=== PATIENT | female | born 1995 | race African-American/Black ===

== ENCOUNTER → 2016-09-16 | Outpatient (REF) | payer OTHER ==
[2016-09-16 21:06] LABS: BASO % 0.3 % (0.0-1.0); EOS # 0.1 K/mm3 (0.0-0.50); EOS % 1.7 % (0.0-3.0); LARGE UNSTAINED CELL # 0.1 K/mm3 (0.0-0.4); LARGE UNSTAINED CELL % 1.9 % (0.0-4.0); LYMPH # 2.1 K/mm3 (1.5-6.5); LYMPH % 31.3 % (24.0-44.0); MEAN CORPUSCULAR HEMOGLOBIN 28.8 pg (27.0-33.0); MEAN CORPUSCULAR HGB CONC 30.8 g/dl (32.0-36.5); MEAN CORPUSCULAR VOLUME 93.7 fl (80.0-96.0); MONO # 0.4 K/mm3 (0.0-0.8); MONO % 6.1 % (0.0-5.0); NEUTROPHILS # 3.9 K/mm3 (1.8-7.7); NEUTROPHILS % 58.6 % (36.0-66.0); PLATELET COUNT, AUTOMATED 336 k/mm3 (150-450); RED CELL DISTRIBUTION WIDTH 12.6 % (11.5-14.5); WHITE BLOOD COUNT 6.7 K/mm3 (4.0-10.0)
[2016-09-16 21:22] LABS: FOLATE 10.3 NG/ML (>5.4); VITAMIN B12 LEVEL 792 PG/ML (247-911)
[2016-09-16 21:24] LABS: ALBUMIN/GLOBULIN RATIO 1.08 (1.00-1.93); ALKALINE PHOSPHATASE 74 U/L (45-117); ALT/SGPT 22 U/L (12-78); ANION GAP 6 MEQ/L (8-16); AST/SGOT 12 U/L (15-37); BILIRUBIN,TOTAL 0.2 MG/DL (0.2-1.0); BLOOD UREA NITROGEN 11 MG/DL (7-18); CALCIUM LEVEL 8.8 MG/DL (8.5-10.1); CARBON DIOXIDE LEVEL 25 MEQ/L (21-32); CHLORIDE LEVEL 105 MEQ/L (98-107); CREATININE FOR GFR 0.75 MG/DL (0.55-1.02); GLOMERULAR FILTRATION RATE > 60.0 (>60); GLUCOSE, FASTING 102 MG/DL (70-105); POTASSIUM SERUM 4.3 MEQ/L (3.5-5.1); SODIUM LEVEL 136 MEQ/L (136-145); TOTAL PROTEIN 7.7 GM/DL (6.4-8.2)
[2016-09-16 21:46] LABS: ERYTHROCYTE SEDIMENTATION RATE 6 mm/hr (0-20)
[2016-09-20 13:04] LABS: ALBUMIN 4.28 GM/DL (3.29-5.55); ALBUMIN % 55.6 % (55.8-66.1); GAMMA GLOBULIN % 19.3 % (11.1-18.8)
== END ==
LOC: M LABNEURO 13:34
PROVIDERS: ATTEND Psychiatry & Neurology Neurology
DX: G62.9 Polyneuropathy, unspecified (principal)

== ENCOUNTER 2016-10-02 12:36 | Emergency (ER) | payer OTHER ==
[~2016-10-02] VITALS: Ht 152.4 cm; Wt 72.6 kg
[2016-10-02 12:38] VITALS: BP 136/74
[2016-10-02] MEDS ORDERED: AMBI5TAB PO (12:46)
[2016-10-02] MEDS ORDERED: PERC5TAB6 PO (13:41)
[2016-10-02] MEDS ORDERED: MOBI7.5T10 PO (13:43)
[2016-10-02] MEDS ORDERED: PERCOCET 5MG/325MG TAB PO ONE (13:45)
== END 2016-10-02 13:57 | disposition home or self-care (01) ==
LOC: M ED 13:32
DX: M25.572 Pain in left ankle and joints of left foot (principal); G89.29 Other chronic pain; Z79.899 Other long term (current) drug therapy

== ENCOUNTER 2016-10-15 01:07 | Emergency (ER) | payer OTHER ==
[~2016-10-15] VITALS: Ht 152.4 cm; Wt 72.6 kg
[~2016-10-15 01:07] MED LIST: AMBI5TAB PO; MOBI7.5T10 PO; PERC5TAB6 PO
[2016-10-15] MEDS ORDERED: NEOSPORIN OINT 0.9 GM PKT (FLOOR STOCK) As Ordered ONE (01:13)
[2016-10-15 01:14] VITALS: BP 134/84
[2016-10-15] MEDS ORDERED: MORPHINE 4 MG/ML 1ML SYRINGE IM ONE (02:45)
--- NOTE | 2016-10-15 03:40 | REPUSA ---
CLINICAL HISTORY: Edema. COMMENTS: Real time sonography with duplex doppler of the left lower extremity was performed with attention to the major deep venous structures. Evaluation reveals the left common femoral, superficial femoral and popliteal veins to be completely compressible without intraluminal thrombus. There is normal spontaneous phasic flow and augmentation. The greater saphenous/common femoral vein junction is patent. IMPRESSION: No evidence of DVT in left lower extremity.. Thank you for your kind referral of this patient.
== END 2016-10-15 03:30 | disposition home or self-care (01) ==
LOC: M ED 03:26
DX: M25.572 Pain in left ankle and joints of left foot (principal); G89.29 Other chronic pain; Z98.890 Other specified postprocedural states; Z87.81 Personal history of (healed) traumatic fracture; Z79.899 Other long term (current) drug therapy

== ENCOUNTER → 2016-11-09 | Day surgery (SDC) | payer OTHER ==
[~2016-11-09] VITALS: Ht 152.4 cm; Wt 69.4 kg
[~2016-11-09] MED LIST changes: +ACETAMINOPHEN 650 MG SUPP As Ordered ONE; +ACETAMINOPHEN 650 MG SUPP PR ONE; +BUPIVACAINE HCL 0.5% 30 ML VIAL As Ordered ONE; +GLYCOPYRROLATE INJ 0.2 MG/ML 2 ML VIAL As Ordered ONE; +HYDROmorphone HCL 1 MG/ML SYRINGE (J1170) As Ordered ONE; +KETOROLAC 60 MG/2 ML VIAL (J1885) As Ordered ONE; +LIDOCAINE 2% INJ 100 MG/5 ML SDV (FOR ANES.) As Ordered ONE; +LR 1,000 ML IV ONE; +LR 1,000 ML IV SCH; +METOCLOPRAMIDE INJ 10MG/2ML VIAL (J2765) As Ordered ONE; +METOCLOPRAMIDE INJ 10MG/2ML VIAL (J2765) IV PRN; +MIDAZOLAM INJ 2 MG/2 ML VIAL (J2250) As Ordered ONE; +NEOSTIGMINE 1MG/ML 5 ML SYRINGE (J2710) As Ordered ONE; +NS 1,000 ML IV SCH; +NS 800 ML IV ONE; +ONDANSETRON 4MG/2ML VIAL (J2405) As Ordered ONE; +ONDANSETRON 4MG/2ML VIAL (J2405) IV PRN; +PERCOCET 5MG/325MG TAB As Ordered ONE; +PERCOCET 5MG/325MG TAB PO PRN; +PROPOFOL 200 MG/20 ML VIAL As Ordered ONE; +dexameTHASONE 4 MG/ML 1ML VIAL (J1100) As Ordered ONE; +fentaNYL 100 MCG/2 ML INJECTION (J3010) As Ordered ONE
[2016-11-09 06:47] LABS: MEAN CORPUSCULAR HEMOGLOBIN 30.5 pg (27.0-33.0); MEAN CORPUSCULAR HGB CONC 32.9 g/dl (32.0-36.5); MEAN CORPUSCULAR VOLUME 92.5 fl (80.0-96.0); RED CELL DISTRIBUTION WIDTH 12.4 % (11.5-14.5); WHITE BLOOD COUNT 6.8 K/mm3 (4.0-10.0)
[2016-11-09 07:11] LABS: ANION GAP 7 MEQ/L (8-16); BLOOD UREA NITROGEN 10 MG/DL (7-18); CALCIUM LEVEL 9.1 MG/DL (8.5-10.1); CARBON DIOXIDE LEVEL 26 MEQ/L (21-32); CHLORIDE LEVEL 108 MEQ/L (98-107); CREATININE FOR GFR 0.77 MG/DL (0.55-1.02); GLOMERULAR FILTRATION RATE > 60.0 (>60); GLUCOSE, FASTING 98 MG/DL (70-105); POTASSIUM SERUM 4.1 MEQ/L (3.5-5.1); SODIUM LEVEL 141 MEQ/L (136-145)
[2016-11-09 08:06] LABS: HCG, SERUM QUANTITATIVE < 1.0 MIU/ML
[2016-11-09] MEDS: HYDROmorphone HCL 1 MG/ML SYRINGE (J1170) IV PRN ×5 (09:10→09:30)
[2016-11-09] MEDS: fentaNYL 100 MCG/2 ML INJECTION (J3010) IV PRN ×4 (09:35→09:50)
[2016-11-09 12:00] VITALS: BP 133/67
--- NOTE | 2016-11-14 12:50 | RO ---
DATE OF PROCEDURE: 11/09/2016 PREOPERATIVE DIAGNOSIS: Dysmenorrhea, abnormal uterine bleeding, supraumbilical keloid. POSTOPERATIVE DIAGNOSIS: OPERATION PROPOSED: Diagnostic laparoscopy, stage grade vaporize endometriosis, hysteroscopy, dilation and curettage (D and C) and removal of supraumbilical keloid. OPERATION PERFORMED: Diagnostic laparoscopy, hysteroscopy, dilation and curettage and removal of supraumbilical keloid. SURGEON: Dr. Rogelio Lamar PARK KEEPER: General plus local anesthetic for intraperitoneal procedures. ESTIMATED BLOOD LOSS: Less than 20 mL. SURGEON: Dr. Rogelio Lamar PARK KEEPER: Amy DESCRIPTION OF PROCEDURE: Under adequate anesthesia, prepped and draped in the lithotomy position, Fraga catheter in the bladder draining clear urine, acetaminophen suppository 1300 mg per rectum, sequentials on board, no antibiotics required. A weighted speculum was placed in the vagina. Single-tooth tenaculum on the anterior lip of the cervix. There was some degree of cervical uterine prolapse. The uterine elevator was placed in endocervical canal. Reprepping and draping, small subumbilical incision was made. The 3 mm camera was placed with a clear view, direct entry into the abdomen. No evidence of perforation, hemorrhage or bleeding. The gas was attached and 3.1 liters of CO2 at a flow rate of 14 per minute was used to inflate the abdomen. Once inside, we noticed no evidence of perforation, hemorrhage or bleeding. Interestingly, the right upper quadrant was normal. Both ovaries appeared to be normal. The anterior aspect of the bladder was normal. There was a white plaque- like area over the cornua on the right side, extending about one-third down the front of the uterus and one-third back of the uterus. Etiology of significance is unknown, but it seemed to be quite an extensive area, possibly related to chronic retroversion and irritation of that area in the cul-de-sac. She did have evidence of adhesions to the left lateral sidewall, and she did have an anterior wall fibroid noted. The areas around the round ligaments appeared to have some degree of endometriosis and the cul-de-sac had spottings of endometriosis, not significant enough in volume but significant enough to cause her pain and etiology of this white plaque-like area is unknown. The left upper quadrant was normal. The rest of the examination was unremarkable. We then went ahead and under direct view, weighted speculum in vagina, again single-tooth tenaculum in place. We sounded the canal in order to get into the uterine cavity. It was quite difficult in that there was some significant stenosis of her cervix, but once we were able to break that barrier, the rest of the cavity opened up and when we looked fundally and on the left side, again there was this white area [id number] from the internal aspect of the cavity to the fundus on the outside. Sampling of the uterine cavity was taken and sent to pathology under separate cover. This lady's last period was November 03, 2016. The os the right side was noted normal. The os on the left side was noted normal. There was no other intrauterine architectural issues. We had 150 mL in, 150 mL out. Then, with instrument and pad count correct, we removed all instruments from the patient, removed the Fraga catheter. We then went up above and removed the keloid, over sewed that with #3-0 Monofil and subcuticular stitch, Marcaine 0.25% to that area, the umbilical area and the right sidewall area where we had placed a trocar. With no active bleeding, skin tapes were provided. The patient was then taken back to recovery in good condition. Options regarding this patient's chronic pain will be discussed prior to her moving to her next appointment . Copy To: Mary Lou Yost [facility]
== END ==
LOC: M SDC 06:18
PROVIDERS: ATTEND Obstetrics & Gynecology
DX: N94.6 Dysmenorrhea, unspecified (principal); N93.9 Abnormal uterine and vaginal bleeding, unspecified; L91.0 Hypertrophic scar; F32.9 Major depressive disorder, single episode, unspecified; Z79.899 Other long term (current) drug therapy
CPT/HCPCS: 11400; 36415; 49320; 58558; 80048; 84702; 85027; 88302; 88305; J1100; J1170; J1885; J2250; J2405; J2710; J2765; J3010

== ENCOUNTER 2017-02-14 10:29 | Emergency (ER) | payer OTHER ==
[~2017-02-14] VITALS: Ht 152.4 cm; Wt 72.7 kg
[~2017-02-14 10:29] MED LIST changes: -ACETAMINOPHEN 650 MG SUPP As Ordered ONE; -ACETAMINOPHEN 650 MG SUPP PR ONE; -BUPIVACAINE HCL 0.5% 30 ML VIAL As Ordered ONE; -GLYCOPYRROLATE INJ 0.2 MG/ML 2 ML VIAL As Ordered ONE; -HYDROmorphone HCL 1 MG/ML SYRINGE (J1170) As Ordered ONE; -KETOROLAC 60 MG/2 ML VIAL (J1885) As Ordered ONE; -LIDOCAINE 2% INJ 100 MG/5 ML SDV (FOR ANES.) As Ordered ONE; -LR 1,000 ML IV ONE; -LR 1,000 ML IV SCH; -METOCLOPRAMIDE INJ 10MG/2ML VIAL (J2765) As Ordered ONE; -METOCLOPRAMIDE INJ 10MG/2ML VIAL (J2765) IV PRN; -MIDAZOLAM INJ 2 MG/2 ML VIAL (J2250) As Ordered ONE; +MOBI4TAB PO; -MOBI7.5T10 PO; -NEOSTIGMINE 1MG/ML 5 ML SYRINGE (J2710) As Ordered ONE; -NS 1,000 ML IV SCH; -NS 800 ML IV ONE; -ONDANSETRON 4MG/2ML VIAL (J2405) As Ordered ONE; -ONDANSETRON 4MG/2ML VIAL (J2405) IV PRN; +PERC5TAB12 PO; -PERC5TAB6 PO; -PERCOCET 5MG/325MG TAB As Ordered ONE; -PERCOCET 5MG/325MG TAB PO PRN; -PROPOFOL 200 MG/20 ML VIAL As Ordered ONE; -dexameTHASONE 4 MG/ML 1ML VIAL (J1100) As Ordered ONE; -fentaNYL 100 MCG/2 ML INJECTION (J3010) As Ordered ONE
[2017-02-14] MEDS ORDERED: CITR1SOL PO (11:25)
--- NOTE | 2017-02-14 11:29 | REP ---
KUB: Single view. History: Constipation. Findings: The bowel gas pattern is normal. Psoas margins and flank stripes are intact. No mass, organomegaly, or pathologic calcification is seen. Impression: Negative KUB. Signed by Ivan Kirkpatrick MD 02/14/2017 12:16 P
[2017-02-14 11:40] VITALS: BP 120/72
== END 2017-02-14 11:42 | disposition home or self-care (01) ==
LOC: M ED 10:29
DX: K59.00 Constipation, unspecified (principal); F99 Mental disorder, not otherwise specified; Z79.899 Other long term (current) drug therapy

== ENCOUNTER 2017-03-20 18:38 | Emergency (ER) | payer OTHER ==
[~2017-03-20] VITALS: Ht 152.4 cm; Wt 75.5 kg
[~2017-03-20 18:38] MED LIST changes: +CITR1SOL PO
[2017-03-20] MEDS ORDERED: PREN1PAK PO (19:09)
[2017-03-20] MEDS ORDERED: MELA1LIQ2 PO (19:09)
[2017-03-20 20:55] LABS: BASO % 0.2 % (0.0-1.0); EOS # 0.1 10^3/uL (0.0-0.50); EOS % 1.1 % (0.0-3.0); IMMATURE GRANULOCYTE % 0.3 % (0-0); LYMPH # 3.6 10^3/uL (1.5-6.5); LYMPH % 36.4 % (24.0-44.0); MEAN CORPUSCULAR HEMOGLOBIN 29.3 pg (27.0-33.0); MEAN CORPUSCULAR HGB CONC 33.1 g/dl (32.0-36.5); MEAN CORPUSCULAR VOLUME 88.5 fl (80.0-96.0); MONO # 0.8 10^3/uL (0.0-0.8); NEUTROPHILS # 5.3 10^3/uL (1.8-7.7); PLATELET COUNT, AUTOMATED 359 10^3/uL (150-450); RED CELL DISTRIBUTION WIDTH 12.6 % (11.5-14.5); WHITE BLOOD COUNT 9.8 10^3/uL (4.0-10.0)
[2017-03-20] MEDS ORDERED: ACETAMINOPHEN 325 MG TAB PO ONE (21:30)
[2017-03-20 21:41] LABS: ANION GAP 8 MEQ/L (8-16); BLOOD UREA NITROGEN 14 MG/DL (7-18); CALCIUM LEVEL 9.2 MG/DL (8.5-10.1); CARBON DIOXIDE LEVEL 25 MEQ/L (21-32); CHLORIDE LEVEL 104 MEQ/L (98-107); CREATININE FOR GFR 0.75 MG/DL (0.55-1.02); GLOMERULAR FILTRATION RATE > 60.0 (>60); GLUCOSE, FASTING 87 MG/DL (70-105); HCG, SERUM QUANTITATIVE 7819 MIU/ML; POTASSIUM SERUM 4.1 MEQ/L (3.5-5.1); SODIUM LEVEL 137 MEQ/L (136-145)
--- NOTE | 2017-03-20 22:20 | REPUSA ---
HISTORY: Pelvic pain. LMP: 02/07/17. Gestational age by the: 5 weeks 6 days. EDC by LMP: 11/14/17. TECHNIQUE: Transabdominal and transvaginal obstetrical ultrasound examination with color flow Doppler imaging. FINDINGS: Uterus measures 9.4 x 5.6 x 6.7 cm. There is a single intrauterine gestational sac measur ing 11.1 x 10.3 x 8.5 mm corresponding to a gestational age of 5 weeks 6 days, with EDC of 11/14/17. Yolk sac is identified but no pole is identifiable at this time. There is also a hypoechoic mass in the lower anterior uterine segment measuring 1.1 x 0.8 x 1.5 cm m ost consistent with uterine fibroid. Right ovary measures 4.0 x 2.5 x 2.6 cm with normal Doppler vascularity and contains a hemorrhagic co rpus luteum cyst measuring 2.2 x 1.6 x 2.3 mm. Left ovary measures 2.7 x 1.6 x 1.7 cm with normal Do ppler vascularity and no pathologic mass seen. There is a trace amount of physiological fluid in the cul-de-sac. No other extrauterine pathologic mass or abnormal fluid collection is seen. IMPRESSION: 1. Single intrauterine gestational sac containing yolk sac but no pole, correspond ing to a gestational age of 5 weeks 6 days with LAMONTE of 11/14/17. 2. Hypoechoic mass in the anterior lower uterine segment consistent with fibroid, as discussed above . 3. Hemorrhagic corpus luteum cyst noted in the right ovary. Left ovary is normal. No other extraut erine pathologic mass or abnormal fluid collection is seen. Clinical correlation and followup imaging may be warranted as clinically indicated.
[2017-03-20 22:45] VITALS: BP 122/58
== END 2017-03-20 22:47 | disposition home or self-care (01) ==
LOC: M ED 18:38
DX: O26.891 Other specified pregnancy related conditions, first trimester (principal); R10.2 Pelvic and perineal pain; O99.89 Other specified diseases and conditions complicating pregnancy, childbirth and the puerperium; O34.11 Maternal care for benign tumor of corpus uteri, first trimester; Z3A.01 Less than 8 weeks gestation of pregnancy; Z79.899 Other long term (current) drug therapy

== ENCOUNTER 2018-03-17 21:22 | Emergency (ER) | payer OTHER ==
[2018-03-17 21:59] LABS: CONTROL LINE UCG INT CTR LINE PRESENT; URINE PREG TEST NEGATIVE (NEGATIVE)
[2018-03-17 22:01] LABS: KETONE, URINE AUTO RFX NEGATIVE (NEGATIVE); LEUKOCYTE ESTERASE UR AUTO RFX NEGATIVE (NEGATIVE); NITRITE, URINE AUTO RFX NEGATIVE (NEGATIVE); RBC, URINE AUTO RFX 2 /HPF (0-3); SPECIFIC GRAVITY UR AUTO RFX 1.024 (1.002-1.035); SQUAM EPITHELIAL CELL UR AURFX 1 /HPF (0-6); WBC, URINE AUTO RFX 3 /HPF (0-3)
[2018-03-17 22:09] LABS: BASO % 0.1 % (0.0-1.0); EOS # 0.2 10^3/uL (0.0-0.50); EOS % 2.2 % (0.0-3.0); HEMATOCRIT 37.9 % (36.0-47.0); HEMOGLOBIN 11.8 g/dl (12.0-15.5); IMMATURE GRANULOCYTE % 0.3 % (0-3.0); LYMPH # 3.5 10^3/uL (1.5-6.5); LYMPH % 50.7 % (24.0-44.0); MEAN CORPUSCULAR HEMOGLOBIN 27.4 pg (27.0-33.0); MEAN CORPUSCULAR HGB CONC 31.1 g/dl (32.0-36.5); MEAN CORPUSCULAR VOLUME 87.9 fl (80.0-96.0); MONO # 0.6 10^3/uL (0.0-0.8); MONO % 8.5 % (0.0-5.0); NEUTROPHILS # 2.6 10^3/uL (1.8-7.7); NEUTROPHILS % 38.2 % (36.0-66.0); PLATELET COUNT, AUTOMATED 348 10^3/uL (150-450); RED BLOOD COUNT 4.31 10^6/uL (4.00-5.40); RED CELL DISTRIBUTION WIDTH 15.1 % (11.5-14.5); WHITE BLOOD COUNT 6.8 10^3/uL (4.0-10.0)
[2018-03-17 22:27] LABS: CONTROL LINE HCG INT CTR LINE PRESENT; HCG, SERUM QUALITATIVE NEGATIVE (NEGATIVE)
[2018-03-17 22:29] LABS: ANION GAP 6 MEQ/L (8-16); BLOOD UREA NITROGEN 11 MG/DL (7-18); CARBON DIOXIDE LEVEL 26 MEQ/L (21-32); CHLORIDE LEVEL 111 MEQ/L (98-107); CREATININE FOR GFR 0.84 MG/DL (0.55-1.30); GLOMERULAR FILTRATION RATE > 60.0 (>60); GLUCOSE, FASTING 92 MG/DL (70-100); POTASSIUM SERUM 4.1 MEQ/L (3.5-5.1); SODIUM LEVEL 143 MEQ/L (136-145)
[2018-03-17 23:17] LABS: FERRITIN 13 NG/ML (8-252); IRON (FE) 51 UG/DL (50-170); PERCENT SATURATION 12.8 % (13.2-45.0); TOTAL IRON BINDING CAPACITY 398 UG/DL (250-450)
== END 2018-03-17 23:25 | disposition home or self-care (01) ==
LOC: M ED 21:22
DX: N93.8 Other specified abnormal uterine and vaginal bleeding (principal); Z87.42 Personal history of other diseases of the female genital tract; N80.9 Endometriosis, unspecified; Z88.6 Allergy status to analgesic agent
CPT/HCPCS: 83550

== ENCOUNTER 2018-08-01 08:41 | Day surgery (SDC) | payer OTHER ==
[~2018-08-01] VITALS: Ht 152.4 cm; Wt 78.5 kg
[~2018-08-01 08:41] MED LIST changes: +ACETAMINOPHEN 650 MG SUPP PR ONE; +AMBI12.52 PO; +LR 1,000 ML IV ONE; +MELA1LIQ2 PO; +PREN1PAK PO; +SODIUM CHLORIDE 0.9% 1000ML IV ONE
[2018-08-01] MEDS ORDERED: PROPOFOL 200 MG/20 ML VIAL As Ordered ONE ×2 (08:49→08:52)
[2018-08-01] MEDS ORDERED: fentaNYL 100 MCG/2 ML INJECTION (J3010) As Ordered ONE ×2 (08:49→11:38)
[2018-08-01] MEDS ORDERED: ROCURONIUM BROMIDE 50 MG/5 ML VIAL As Ordered ONE (08:49)
[2018-08-01] MEDS ORDERED: MIDAZOLAM INJ 2 MG/2 ML VIAL (J2250) As Ordered ONE (08:49)
[2018-08-01] MEDS ORDERED: LIDOCAINE 2% INJ 100 MG/5 ML SDV (FOR ANES.) As Ordered ONE (08:49)
[2018-08-01 09:07] LABS: HEMATOCRIT 37.3 % (36.0-47.0); HEMOGLOBIN 12.1 g/dl (12.0-15.5); MEAN CORPUSCULAR HEMOGLOBIN 28.6 pg (27.0-33.0); MEAN CORPUSCULAR HGB CONC 32.4 g/dl (32.0-36.5); MEAN CORPUSCULAR VOLUME 88.2 fl (80.0-96.0); PLATELET COUNT, AUTOMATED 282 10^3/uL (150-450); RED BLOOD COUNT 4.23 10^6/uL (4.00-5.40); WHITE BLOOD COUNT 7.1 10^3/uL (4.0-10.0)
[2018-08-01] MEDS ORDERED: SCOPOLAMINE 1MG TRANSDERMAL PATCH As Ordered ONE (09:39)
[2018-08-01] MEDS ORDERED: SCOPOLAMINE 1MG TRANSDERMAL PATCH TOP ONE (09:45)
[2018-08-01] MEDS ORDERED: KETOROLAC 60 MG/2 ML VIAL (J1885) As Ordered ONE (09:53)
[2018-08-01] MEDS ORDERED: SUGAMMADEX SODIUM 500 MG/5 ML VIAL (BRIDION) As Ordered ONE ×2 (10:12→12:14)
[2018-08-01] MEDS ORDERED: ACETAMINOPHEN 650 MG SUPP As Ordered ONE (10:59)
[2018-08-01] MEDS ORDERED: METHYLENE BLUE 0.5% (5MG/ML) 10 ML AMP (PROVAYBLUE)(Q9968 PER 1MG) As Ordered ONE (10:59)
[2018-08-01] MEDS ORDERED: BUPIVACAINE HCL 0.5% 10 ML VIAL As Ordered ONE (10:59)
[2018-08-01] MEDS ORDERED: FLUORESCEIN 10% (100MG/ML) 5 ML VIAL As Ordered ONE (11:02)
[2018-08-01 11:22] LABS: BLOOD UREA NITROGEN 11 MG/DL (7-18); CALCIUM LEVEL 9.4 MG/DL (8.5-10.1); CARBON DIOXIDE LEVEL 25 MEQ/L (21-32); CHLORIDE LEVEL 104 MEQ/L (98-107); CREATININE FOR GFR 0.78 MG/DL (0.55-1.30); GLOMERULAR FILTRATION RATE > 60.0 (>60); GLUCOSE, FASTING 97 MG/DL (70-100); HCG, SERUM QUANTITATIVE < 1.0 MIU/ML; POTASSIUM SERUM 4.1 MEQ/L (3.5-5.1); SODIUM LEVEL 138 MEQ/L (136-145)
[2018-08-01] MEDS ORDERED: dexameTHASONE 4 MG/ML 1ML VIAL (J1100) As Ordered ONE (11:33)
[2018-08-01] MEDS ORDERED: ONDANSETRON 4MG/2ML VIAL (J2405) IV PRN (12:30)
[2018-08-01] MEDS ORDERED: HYDROMORPHONE HCL 0.5 MG/ 0.5 ML SYRINGE (J1170 PER 1) IV PRN (12:30)
[2018-08-01] MEDS ORDERED: fentaNYL 100 MCG/2 ML INJECTION (J3010) IV PRN (12:30)
[2018-08-01] MEDS ORDERED: LR 1,000 ML IV SCH (12:30)
[2018-08-01] MEDS ORDERED: HYDROmorphone HCL 2 MG/ML 1ML VIAL (J1170) As Ordered ONE (12:33)
[2018-08-01] MEDS ORDERED: PERCOCET 5MG/325MG TAB As Ordered ONE (13:27)
[2018-08-01] MEDS ORDERED: PERCOCET 5MG/325MG TAB PO PRN (13:45)
[2018-08-01] MEDS ORDERED: KETOROLAC 30 MG/ML VIAL (J1885) IV PRN (15:15)
[2018-08-01 15:40] VITALS: BP 136/85
--- NOTE | 2018-08-09 09:24 | RO ---
DATE OF PROCEDURE: 08/01/2018 PREOPERATIVE DIAGNOSES: Endometriosis reevaluation and pelvic pain. POSTOPERATIVE DIAGNOSES: Minimal endometriosis, adhesions, adenomyosis. OPERATION PROPOSED: Operative laparoscopy. OPERATION PERFORMED: Operative laparoscopy, lysis of adhesions. ANESTHESIA: General plus local anesthetic for intraperitoneal procedures. ESTIMATED BLOOD LOSS: Less than 20 mL. SURGEON: Rogelio Lamar MD PAPER WINDER: Ms. Castro for extraction, retraction and visualization. DESCRIPTION OF PROCEDURE: After adequate time-out, prepped and draped in the lithotomy position, Fraga catheter in the bladder draining clear urine, sequentials on the patient and acetaminophen suppository 1300 mg per rectum, small subumbilical incision was made passing through abdominal layers and securing hemostasis. A small subumbilical incision was made. Veress needle was applied, 3.8 liters of CO2 to a flow rate of 14, to a pressure 15, 5 mm scope was used and no evidence of hemorrhage, perforation, but we did notice on entry that there were a massive amount of adhesions from the periumbilical area right down to the pelvis. Elevating the small bowel up out of the pelvis, a 5 mm port was placed on the right side, a 5 mm port was placed on the left side. The uterine elevator was placed in the endocervical canal. We did notice that the uterus was retroverted, retroflexed and mottling at the fundus of the uterus was similar to what we saw previously a year ago and that is because of the heaviness of the uterus and it is sitting in the cul-de-sac. Reviewed the right upper quadrant, which was normal. The left upper quadrant was normal. The right uterosacral was normal. The left uterosacral was normal. The cul-de-sac was cleared, there was maybe one spot of endometriosis present, as previously there was much more. The ovarian fossae were bilaterally normal. Both tubes to the fimbriated end were normal and the ovaries appeared to be normal. Our most important issue was this adhesive band, which from almost the cornual on the left side to periumbilical area. We used the LigaSure scalpel and we reduced the adhesive band to put it back in the pelvis and released the tension from the bowel to the periumbilical area. This is probably the main concern as far as this lady goes with her pelvic pain. The endometriosis is minimal, maybe one spot and suggestion of maybe a second spot but otherwise no evidence to suggest any other reason or etiology for pain. The appendiceal area was noted to be normal. We then lavaged out the abdomen, left 250 mL of normal saline in the abdomen, deflated to 4 mm pressure, removed the two 5 mm ports, removed the mainstem port, put stitches in all three areas and skin tapes. We then went below. We removed the uterine elevator. We sounded the uterus to a depth of 12 cm, suggesting adenomyosis. We then went ahead and hysteroscoped the patient, reviewed the endometrial lining, which seemed to be quite thickened. A sampling of the lining was performed. The anterior and posterior ngo were noted. She just has a large volume cervix and large uterus, which tends to retrovert and retroflex on its own because the fundus appears to be quite bulky. Other than that, there are no other noted issues with the uterus and if the bleeding is an issue, the possibility of Mirena IUCD may be entertained, which would help with excessive bleeding and may resolve the issue of the one or two spots of endometriosis. With instrument and pad count correct, we used 150 mL of saline in and 150 mL out. All instruments were removed. The Fraga catheter was removed. The uterus was placed in anatomical position, and the patient was taken to recovery.
== END 2018-08-01 15:53 | disposition home or self-care (01) ==
LOC: M SDC 08:41
PROVIDERS: ATTEND Obstetrics & Gynecology
DX: N80.3 Endometriosis of pelvic peritoneum (principal); N73.6 Female pelvic peritoneal adhesions (postinfective); N80.0 Endometriosis of uterus; F41.9 Anxiety disorder, unspecified; F32.9 Major depressive disorder, single episode, unspecified; Z88.6 Allergy status to analgesic agent
CPT/HCPCS: 36415; 58660; 80048; 84702; 85027; 88305; J1100; J1170; J1885; J2250; J3010

== ENCOUNTER 2018-11-19 15:40 | Emergency (ER) | payer OTHER ==
[~2018-11-19] VITALS: Ht 154.9 cm; Wt 77.0 kg
[~2018-11-19 15:40] MED LIST changes: -ACETAMINOPHEN 650 MG SUPP PR ONE; -LR 1,000 ML IV ONE; -SODIUM CHLORIDE 0.9% 1000ML IV ONE
[2018-11-19] MEDS ORDERED: TYLETAB14 PO (17:20)
[2018-11-19] MEDS ORDERED: ACETAMINOPH W/CODEINE #3 TAB UD PO ONE (17:30)
[2018-11-19 17:50] VITALS: BP 136/88
== END 2018-11-19 17:53 | disposition home or self-care (01) ==
LOC: M ED 15:40
DX: G56.02 Carpal tunnel syndrome, left upper limb (principal); N80.9 Endometriosis, unspecified; Z79.899 Other long term (current) drug therapy; Z88.8 Allergy status to other drugs, medicaments and biological substances

== ENCOUNTER 2018-12-12 15:00 | Emergency (ER) | payer OTHER ==
[~2018-12-12] VITALS: Ht 152.4 cm; Wt 77.2 kg
[~2018-12-12 15:00] MED LIST changes: +TYLETAB14 PO
[2018-12-12] MEDS ORDERED: AZIT-12 (15:08)
[2018-12-12] MEDS ORDERED: PROAAER10 (15:08)
[2018-12-12] MEDS ORDERED: FLUC150T (15:08)
[2018-12-12] MEDS ORDERED: diphenhydrAMINE INJ 50MG/ML VIAL (J1200) IV STA (17:22)
[2018-12-12] MEDS ORDERED: NS 1,000 ML IV ONE (17:30)
[2018-12-12] MEDS ORDERED: METOCLOPRAMIDE INJ 10MG/2ML VIAL (J2765) IV ONE (17:30)
[2018-12-12] MEDS ORDERED: KETOROLAC 30 MG/ML VIAL (J1885) IV ONE (17:30)
[2018-12-12 18:15] LABS: BASO % 0.2 % (0.0-1.0); EOS # 0.1 10^3/uL (0.0-0.50); EOS % 1.5 % (0.0-3.0); HEMATOCRIT 36.6 % (36.0-47.0); HEMOGLOBIN 11.7 g/dl (12.0-15.5); LYMPH # 3.2 10^3/uL (1.5-6.5); LYMPH % 38.1 % (24.0-44.0); MEAN CORPUSCULAR HEMOGLOBIN 28.6 pg (27.0-33.0); MEAN CORPUSCULAR VOLUME 89.5 fl (80.0-96.0); MONO # 0.6 10^3/uL (0.0-0.8); MONO % 7.5 % (0.0-5.0); NEUTROPHILS # 4.4 10^3/uL (1.8-7.7); NEUTROPHILS % 52.5 % (36.0-66.0); PLATELET COUNT, AUTOMATED 342 10^3/uL (150-450); RED BLOOD COUNT 4.09 10^6/uL (4.00-5.40); WHITE BLOOD COUNT 8.4 10^3/uL (4.0-10.0)
[2018-12-12 18:36] LABS: MAGNESIUM LEVEL 2.2 MG/DL (1.8-2.4)
[2018-12-12] MEDS ORDERED: MECLIZINE 25 MG TABLET PO ONE (19:00)
[2018-12-12] MEDS ORDERED: MECL-68 PO (19:39)
[2018-12-12] MEDS ORDERED: KETO10TAB PO (19:39)
[2018-12-12] MEDS ORDERED: REGL10TA6 PO (19:39)
[2018-12-12 19:50] VITALS: BP 107/53
--- NOTE | 2018-12-13 19:10 | ECGEPIP ---
[facility] - ED Test Date: 2018-12-12 Pat Name: GERMANIA HAYWOOD Department: Room: - Gender: Female Rn Perioperative: el : 1995 Requested By: BRIDGER Sun PA-C Order Number: [id number] Reading MD: Delphine Uriarte Measurements Intervals [place] Rate: 67 P: [place]: 129 QRS: 18 QRSD: 84 T: 10 QT: 380 QTc: 402 Interpretive Statements SINUS RHYTHM No prior Electronically Signed on 12-13-2018 19:10:18 EDT by Delphine Uriarte
[2018-12-15 00:06] LABS: Lyme Disease IgG/IgM Antibodie <0.91 ISR (0.00-0.90); Lyme Disease IgM Ab Quantitati <0.80 index (0.00-0.79)
== END 2018-12-12 19:51 | disposition home or self-care (01) ==
LOC: M ED 15:00
DX: R51 Headache (principal); R42 Dizziness and giddiness; R06.02 Shortness of breath; R07.9 Chest pain, unspecified; N80.9 Endometriosis, unspecified; Z88.6 Allergy status to analgesic agent; Z88.8 Allergy status to other drugs, medicaments and biological substances; Z79.899 Other long term (current) drug therapy; Z79.2 Long term (current) use of antibiotics
CPT/HCPCS: 80047; 81001; 82550; 83735; 85025; 85379; 86617; 93005; 96374; 96375; 99284; J1200; J1885; J2765

== ENCOUNTER 2019-01-12 10:26 | Emergency (ER) | payer OTHER ==
[~2019-01-12] VITALS: Ht 152.4 cm; Wt 77.3 kg
[~2019-01-12 10:26] MED LIST changes: +AZIT-12; +FLUC150T; +KETO10TAB PO; +MECL1TAB31 PO; +PROAAER10; +REGL10TA6 PO
[2019-01-12] MEDS ORDERED: NS 1,000 ML IV ONE (11:30)
[2019-01-12 11:49] LABS: BASO % 0.3 % (0.0-1.0); EOS # 0.1 10^3/uL (0.0-0.50); EOS % 1.5 % (0.0-3.0); HEMATOCRIT 39.8 % (36.0-47.0); LYMPH # 2.8 10^3/uL (1.5-6.5); LYMPH % 35.7 % (24.0-44.0); MEAN CORPUSCULAR HEMOGLOBIN 29.8 pg (27.0-33.0); MEAN CORPUSCULAR HGB CONC 32.7 g/dl (32.0-36.5); MEAN CORPUSCULAR VOLUME 91.3 fl (80.0-96.0); MONO # 0.8 10^3/uL (0.0-0.8); MONO % 10.2 % (0.0-5.0); NEUTROPHILS % 51.9 % (36.0-66.0); PLATELET COUNT, AUTOMATED 303 10^3/uL (150-450); RED BLOOD COUNT 4.36 10^6/uL (4.00-5.40); WHITE BLOOD COUNT 7.8 10^3/uL (4.0-10.0)
[2019-01-12 12:31] LABS: BLOOD UREA NITROGEN 9 MG/DL (7-18); CALCIUM LEVEL 9.4 MG/DL (8.5-10.1); CARBON DIOXIDE LEVEL 27 MEQ/L (21-32); CHLORIDE LEVEL 107 MEQ/L (98-107); CREATININE FOR GFR 0.85 MG/DL (0.55-1.30); GLOMERULAR FILTRATION RATE > 60.0 (>60); GLUCOSE, FASTING 91 MG/DL (70-100); MAGNESIUM LEVEL 2.2 MG/DL (1.8-2.4); SODIUM LEVEL 141 MEQ/L (136-145)
[2019-01-12] MEDS ORDERED: ISOVUE-370 76% 100ML VIAL (Q9967) As Ordered ONE (12:33)
--- NOTE | 2019-01-12 13:22 | REP ---
CT head without contrast Clinical indication: Trauma, syncope, headache. Comparison: None Findings: The head is rotated. There is no visible soft tissue swelling or calvarial fracture. There is no evidence of acute intracranial hemorrhage or midline shift. There is no extra-axial fluid collection. The ventricles and sulci are small but symmetric. There is crowding of the posterior fossa. Hsieh-white matter differentiation is maintained. The imaged paranasal sinuses and mastoid air cells are clear. Impression: 1. No acute intracranial hemorrhage or calvarial fracture. 2. Small ventricles and sulci, within normal limits for patient's age. Electronically Signed by Aurelio Smith MD 01/12/2019 01:13 P
[2019-01-12] MEDS ORDERED: ACETAMINOPHEN 325 MG TAB PO ONE (14:15)
[2019-01-12 14:26] VITALS: BP 118/65
--- NOTE | 2019-01-12 14:59 | REP ---
REASON FOR EXAM: Trauma, syncope, chest pain. PRIORS: None. CONTRAST: 100 mL Isovue-370. There is excellent visualization of the pulmonary arterial vasculature. There are no focal filling defects present that would be considered consistent with pulmonary emboli. There is no mediastinal or hilar adenopathy. There are no pleural or pericardial effusions. The thoracic aorta is normal. The imaged upper abdomen is normal. Bone window technique throughout the exam shows the osseous structures to be within normal limits. Evaluation of the lung nelson shows no abnormal nodules, masses, or opacities. IMPRESSION: Normal CT findings. Electronically Signed by Satya Roth DO 01/12/2019 03:19 P
--- NOTE | 2019-01-12 20:15 | ECGEPIP ---
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 Order Number: [id number] Reading MD: Woodrow Flores Measurements Intervals [place] Rate: 83 P: 70 [place]: 135 QRS: 16 QRSD: 84 T: 8 QT: 345 QTc: 407 Interpretive Statements SINUS RHYTHM INCOMPLETE RIGHT BUNDLE BRANCH BLOCK NSTTW ABNORMALITIES SIMILAR TO 12/12/18 Electronically Signed on 01-12-2019 20:14:37 EDT by Woodrow Flores
== END 2019-01-12 14:31 | disposition home or self-care (01) ==
LOC: M ED 10:26 → EDBD 10:26 → M ED 14:31
DX: R55 Syncope and collapse (principal); S09.90XA Unspecified injury of head, initial encounter; X58.XXXA Exposure to other specified factors, initial encounter; Y92.89 Other specified places as the place of occurrence of the external cause; Z88.8 Allergy status to other drugs, medicaments and biological substances
CPT/HCPCS: 70450; 71275; 80048; 83735; 84443; 84702; 85025; 85379; 93005; 96360; 96361; 99284; Q9967

== ENCOUNTER → 2019-06-19 | Outpatient (REF) | payer OTHER ==
[2019-06-19 22:16] LABS: CHLAMYDIA DNA AMPLIFICATION NEGATIVE (NEGATIVE); GC DNA AMPLIFICATION NEGATIVE (NEGATIVE)
== END ==
LOC: M SFHCLERA 17:53
PROVIDERS: ATTEND Nurse Practitioner Family
DX: R30.0 Dysuria (principal); N89.8 Other specified noninflammatory disorders of vagina
CPT/HCPCS: 81002; 81025; 87070; 87086; 87661; G0463

== ENCOUNTER 2019-11-20 09:47 | Day surgery (SDC) | payer OTHER ==
[~2019-11-20] VITALS: Ht 152.4 cm; Wt 80.7 kg
[~2019-11-20 09:47] MED LIST changes: +ACETAMINOPHEN 500 MG TAB PO ONE; +GABAPENTIN 300 MG CAP PO ONE; +LIDOCAINE 1% MDV 20ML VIAL SQ PRN; +LR 1,000 ML IV ONE
[2019-11-20 10:25] LABS: HEMATOCRIT 38.1 % (36.0-47.0); HEMOGLOBIN 12.3 g/dl (12.0-15.5); MEAN CORPUSCULAR HEMOGLOBIN 29.2 pg (27.0-33.0); MEAN CORPUSCULAR HGB CONC 32.3 g/dl (32.0-36.5); MEAN CORPUSCULAR VOLUME 90.5 fl (80.0-96.0); PLATELET COUNT, AUTOMATED 340 10^3/uL (150-450); RED BLOOD COUNT 4.21 10^6/uL (4.00-5.40); WHITE BLOOD COUNT 5.3 10^3/uL (4.0-10.0)
[2019-11-20] MEDS ORDERED: dexameTHASONE 4 MG/ML 1ML VIAL (J1100 PER 1MG) As Ordered ONE (10:38)
[2019-11-20] MEDS ORDERED: PHENYLephrine 500MCG 5ML (100MCG/ML) SYRINGE As Ordered ONE (10:38)
[2019-11-20] MEDS ORDERED: ePHEDrine SULFATE 25 MG/5 ML(5MG/ML) SYRINGE As Ordered ONE (10:38)
[2019-11-20] MEDS ORDERED: fentaNYL 100 MCG/2 ML INJECTION (J3010) As Ordered ONE (10:38)
[2019-11-20] MEDS ORDERED: MIDAZOLAM INJ 2MG/2ML VIAL (J2250 PER 1MG) As Ordered ONE (10:38)
[2019-11-20] MEDS ORDERED: ONDANSETRON 4MG/2ML VIAL As Ordered ONE (10:38)
[2019-11-20] MEDS ORDERED: KETOROLAC 60MG 2ML VIAL As Ordered ONE (10:38)
[2019-11-20] MEDS ORDERED: ROCURONIUM BROMIDE 50 MG/5 ML VIAL As Ordered ONE (10:39)
[2019-11-20] MEDS ORDERED: LIDOCAINE 2% 100MG/5ML SDV (FOR ANES.) As Ordered ONE (10:39)
[2019-11-20] MEDS ORDERED: SUGAMMADEX SODIUM 500 MG/5 ML VIAL (BRIDION) As Ordered ONE (10:39)
[2019-11-20] MEDS ORDERED: propofoL 200 MG/20 ML VIAL As Ordered ONE (10:39)
[2019-11-20 10:58] LABS: HCG, SERUM QUALITATIVE NEGATIVE (NEGATIVE)
[2019-11-20] MEDS ORDERED: GABA-1171 (10:59)
[2019-11-20] MEDS ORDERED: SCOPOLAMINE 1MG TRANSDERMAL PATCH As Ordered ONE (11:30)
[2019-11-20] MEDS ORDERED: SCOPOLAMINE 1MG TRANSDERMAL PATCH TOP ONE (11:45)
[2019-11-20] MEDS ORDERED: BUPIVACAINE HCL 0.25% 30ML VIAL As Ordered ONE (12:46)
[2019-11-20] MEDS ORDERED: ACETAMINOPHEN 1000MG 100ML IV BTL (OFIRMEV) (J0131 PER 10MG) As Ordered ONE (13:10)
[2019-11-20] MEDS ORDERED: ESMOLOL INJ 100MG/10ML VIAL As Ordered ONE (13:29)
[2019-11-20] MEDS ORDERED: PERCOCET 5MG/325MG TAB As Ordered ONE (14:23)
[2019-11-20] MEDS ORDERED: ONDANSETRON 4MG/2ML VIAL IV PRN (14:30)
[2019-11-20] MEDS ORDERED: LR 1,000 ML IV SCH (14:30)
[2019-11-20] MEDS ORDERED: METOCLOPRAMIDE INJ 10MG/2ML VIAL (J2765 PER 1) IV PRN (14:30)
[2019-11-20] MEDS ORDERED: PERCOCET 5MG/325MG TAB PO PRN (14:30)
[2019-11-20] MEDS: fentaNYL 100 MCG/2 ML INJECTION (J3010) IV PRN ×2 (14:38→15:01)
--- NOTE | 2019-11-20 14:45 | POST-OPPD ---
Postoperative Procedure Note Date Of Procedure: Nov 20, 2019 PREOPERATIVE DIAGNOSIS: Chronic pelvic pain right ovarian cyst POSTOPERATIVE DIAGNOSIS: chronic pelvic pain filmy adhesions FINDINGS: see below PROCEDURE: operative laparoscopy with lysis of adhesions SURGEON: Christine Christianson DO RECYCLING ASSISTANT: none ANESTHESIA: general anesthesia SPECIMENS: none ESTIMATED BLOOD LOSS: < 5cc REPLACED: 1100cc LR DRAINS: 150cc urine COMPLICATIONS: none POSTOPERATIVE CONDITION: stable Detailed description of procedure: Findings: Bimanual: retroverted uterus, mobile Laparoscopic findings: Normal appearing uterus, bilateral fallopian tubes and ovaries. Anterior scarring of bladder to uterus at lower uterine segment as expected from prior section. No lesion in anterior or posterior cul-de-sac. No lesion in ovarian fossa bilaterally. Filmy adhesions at right upper quadrant. Liver edge and gallbladder normal appearing. Description of procedure: The risks, benefits, indications and alternatives of the procedure were reviewed with the patient and informed written consent was obtained. The patient was taken to the operating room with IV running. She was placed under general anesthesia with endotracheal tube. Arms tucked. Patient placed in lithotomy. The abdomen, vagina and perineum were prepped and draped in the usual sterile fashion. Fraga inserted. Speculum placed. Cervix visualized, no lesion. Anterior cervix grasped with single tooth tennaculum. Hulka uterine manipulator placed. Speculum removed. Small incision made in umbilicus. Veres needle introduced. Saline drop test confirmed intraabdominal placement. Abdomen insufflated with CO2. Five mm trocar introduced under direct visualization. Surveys reviews no bowel injury or bleeding. Two 5mm ports placed left lower abdomen with direct visualization. Findings as above. Noted bloody menstrual blood in pelvis. Pelvis irrigated and suctioned. Harmonic used for lysis of adhesions of right upper quadrant. Port sites visualized after removal without bleeding. Abdomen desuflated. Camera and instruments removed from abdomen. Incision sites closed with 4-O monocryl and dermabond. Fraga and uterine manipulator removed from the vagina. Count correct x 2. Patient was taken out of OR in stable condition. DO ELIZABETH Christianson LUAT N. DO Nov 20, 2019 14:45
[2019-11-20 17:05] VITALS: BP 127/80
== END 2019-11-20 17:15 | disposition home or self-care (01) ==
LOC: M SDC 09:47
PROVIDERS: ATTEND Obstetrics & Gynecology
DX: N73.6 Female pelvic peritoneal adhesions (postinfective) (principal); R10.2 Pelvic and perineal pain; Z88.8 Allergy status to other drugs, medicaments and biological substances; Z79.899 Other long term (current) drug therapy
CPT/HCPCS: 36415; 58660; 84703; 85027; 86850; 86900; 86901; J0131; J1100; J1885; J2250; J2370; J2405; J3010